=== PATIENT | female | born 1995 | race Caucasian/White ===

== ENCOUNTER 2020-12-23 20:42 | Emergency (ER) | payer OTHER ==
[~2020-12-23] VITALS: Ht 157.5 cm; Wt 54.4 kg
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
[2020-12-23] MEDS ORDERED: IBUPROFEN 400 MG TABLET ONE (21:49)
[2020-12-23] MEDS ORDERED: IBUPROFEN 400 MG TABLET PO ONE (22:00)
[2020-12-23] MEDS ORDERED: IBUP-1957 PO (22:35)
--- NOTE | 2020-12-23 22:41 | NUR ---
Patient discharged to home in stable condition. Written and verbal after care instructions given. Patient verbalizes understanding of instruction. ambulatory with a steady gait noted. Pt aaox4 no acute distress noted, resp even and unlabored.
[2020-12-23 22:42] VITALS: BP 121/62
== END 2020-12-23 22:41 | disposition home or self-care (01) ==
LOC: ER 20:49
DX: S83.8X2A Sprain of other specified parts of left knee, initial encounter (principal); S16.1XXA Strain of muscle, fascia and tendon at neck level, initial encounter; S39.012A Strain of muscle, fascia and tendon of lower back, initial encounter; S60.012A Contusion of left thumb without damage to nail, initial encounter; S60.011A Contusion of right thumb without damage to nail, initial encounter; V49.49XA Driver injured in collision with other motor vehicles in traffic accident, initial encounter; Y93.89 Activity, other specified; Y92.413 State road as the place of occurrence of the external cause; Y99.8 Other external cause status
CPT/HCPCS: 72040-TC; 72100-TC; 73140-TC; 73564-TC